=== PATIENT | male | born 1960 | race Caucasian/White ===

== ENCOUNTER 2017-03-05 05:18 | Observation (INO) | payer BC, OTHER ==
[2017-02-25 11:57] VITALS: BMI 43.0
--- NOTE | 2017-02-25 12:38 | PAT Medication Instructions ---
Service Date Feb 25, 2017. Current Home Medication List Apixaban (Eliquis), Unknown Dose PO BID Carvedilol (Carvedilol), 1 TAB PO BID Folic Acid (Folic Acid), Unknown Dose QAM Lisinopril (Prinivil), 20 MG PO QAM Magnesium Oxide (Mag-Ox), Unknown Dose PO BID Multiple Vitamin (Multi Vitamin), 1 TAB PO QAM Medication Instructions For Your Scheduled Surgery - Check with surgeon and buffet server for instructions: Apixaban (Eliquis), Unknown Dose PO BID - Hold the following medications the morning of surgery: Magnesium Oxide (Mag-Ox), Unknown Dose PO BID Multiple Vitamin (Multi Vitamin), 1 TAB PO QAM Folic Acid (Folic Acid), Unknown Dose QAM Lisinopril (Prinivil), 20 MG PO QAM - Take the following medications the morning of surgery with a sip of water: Carvedilol (Carvedilol), 1 TAB PO BID - Take the following medications as scheduled the night before surgery: Magnesium Oxide (Mag-Ox), Unknown Dose PO BID Carvedilol (Carvedilol), 1 TAB PO BID If you have any questions please call us at [phone] or [phone] or [phone]
--- NOTE | 2017-02-25 13:16 | DIAGNOSTIC IMAGING REPORT ---
CHEST PREADMISSION(PA/LAT) CLINICAL HISTORY: Preoperative chest COMPARISON STUDY: 06/24/2010 FINDINGS: The cardiac and mediastinal contours remain stable. There is no focal pulmonary consolidation. There is no failure. There is minor left basilar atelectatic change. Degenerative changes are present within the dorsal spine.[ IMPRESSION: No active disease in the chest. Electronically signed by: Saeid Santos M.D. 02/25/2017 1:14 PM Dictated Date/Time: 02/25/2017 1:14 PM
[2017-02-25 13:26] LABS: BASO % 0.5 %; BASO ABS # 0.02 K/uL (0-0.2); COMPLETE YES; EOS % 2.8 %; HEMATOCRIT 41.7 % (42-52); IG% 0.5 %; LYMPH % 18.9 %; MEAN CORPUSCULAR HEMOGLOBIN 29.3 pg (25-34); MEAN CORPUSCULAR HGB CONC 32.1 g/dl (32-36); MEAN PLATELET VOLUME 9.5 fL (7.4-10.4); MONO % 18.2 %; NEUT % 59.1 %; PLATELET COUNT 169 K/uL (130-400); RED BLOOD COUNT 4.58 M/uL (4.7-6.1); WHITE BLOOD COUNT 4.23 K/uL (4.8-10.8)
[2017-02-25 13:33] LABS: URINE APPEARANCE CLEAR (CLEAR); URINE BILIRUBIN NEG (NEG); URINE COLOR DK YELLOW; URINE NITRITE NEG (NEG); URINE PH 6.5 (4.5-7.5); UROBILINOGEN POS (NEG); ZZUR CULT IF INDIC CLEAN CATCH NO
[2017-02-25 13:34] LABS: INR 1.1 (0.9-1.1); PARTIAL THROMBOPLASTIN RATIO 1.2; PROTHROMBIN TIME (PATIENT) 11.9 SECONDS (9.0-12.0)
[2017-02-25 13:45] LABS: BUN/CREATININE RATIO 7.7 (10-20); CALCIUM 9.2 mg/dl (8.5-10.1); CREATININE 1.3 mg/dl (0.60-1.40); POTASSIUM 4.4 mmol/L (3.5-5.1)
[2017-02-25 13:48] LABS: MANUAL MICROSCOPIC REQUIRED? NO; REVIEW REQ? NO
--- NOTE | 2017-03-04 22:59 | History and Physical ---
History & Physical Date Mar 04, 2017. Chief Complaint Left foot pain History of Present Illness The patient is a 57 year old male with complaints of left foot pain and a large fluid collection that recently started on the lateral side of his foot. He has a hx of a triple arthrodesis on this side which hasn't been a problem for him since his recovery. More recently, a large area swelled and seemed to be filled with fluid. He had an MRI which confirmed a mass. He is now being set up for surgical management. Past Medical/Surgical History Past surgical hx: left triple arthrodesis PMH: Angina, HTN, Hx of back pain, hx of irregular heart beat, dilated cardiomyopathy, paroxysmal atrial fibrillation Allergies Coded Allergies: No Known Allergies (Unverified , 02/25/17) Home Medications Scheduled Amlodipine (Norvasc), 5 MG PO DAILY Apixaban (Eliquis), Unknown Dose PO BID Carvedilol (Carvedilol), 1 TAB PO BID Folic Acid (Folic Acid), Unknown Dose QAM Lisinopril (Prinivil), 20 MG PO QAM Magnesium Oxide (Mag-Ox), Unknown Dose PO BID Multiple Vitamin (Multi Vitamin), 1 TAB PO QAM Physical Examination Skin: warm/dry, no rash Eyes: normal inspection ENT: normal ENT inspection Head: normocephalic, atraumatic Neck: supple, no adenopathy, trachea midline Respiratory/Chest: lungs clear, normal breath sounds, no respiratory distress Cardiovascular: regular rate, rhythm, no murmur Abdomen / GI: normal bowel sounds, non tender Extremities: + pertinent finding (Left foot pes planus. Well healed incisions at the medial and lateral hindfoot. Large mass at the lateral foot with fluctuance. No open areas. No warmth or erythema. Tender to palpation lateral foot.) Neurologic/Psych: alert, oriented x 3 Diagnosis Left foot mass Retained hardware left hindfoot Plan of Treatment Recommend a left foot I & D and evacuation of mass lateral foot, possible hardware removal of the hindfoot, possible exostectomy 5th metatarsal base. All potential risks, benefits, complications, alternatives, and rehab have been discussed with the patient and he wishes to proceed. He will be scheduled on 03.05.17.
[2017-03-05] VITALS (7 sets, daily range): BP systolic 98–154; BP diastolic 66–95; PULSE 74–87; TEMP 36.4–37; O2SAT 91–99; Ht 185.4 cm; Wt 148.4 kg
[~2017-03-05] VITALS: Ht 185.4 cm; Wt 148.4 kg
[~2017-03-05 05:18] MED LIST: AMLO-110 PO; APIX1TAB3 PO; CRG125 PO; FLV400; LISI10TA PO; MAGN400T6 PO; MULT-1027 PO
[2017-03-05] MEDS ORDERED: MAGN400T6 PO (05:52)
[2017-03-05] MEDS ORDERED: THIA100T11 PO (05:56)
[2017-03-05] MEDS ORDERED: LACTATED RINGER'S 1000ML 1,000 ML IV SCH ×2 (06:00)
[2017-03-05] MEDS ORDERED: CEFAZOLIN 3000 MG/65 ML D5W IV SCH (06:00)
[2017-03-05] MEDS ORDERED: ROPIVACAINE 0.5% 5 MG/ML 30 ML VIAL ONE (06:29)
--- NOTE | 2017-03-05 07:43 | History & Physical Bridge Note ---
H&P Re-Evaluation Bridge Note: I have examined the patient, reviewed the History & Physical and in the interval since the performance of the History & Physical I have noted the following changes of clinical significance: No changes noted
[2017-03-05] MEDS ORDERED: FENTANYL CITRATE INJ 50 MCG/1 ML 2 ML VIAL IV PRN (08:45)
[2017-03-05] MEDS ORDERED: ATROPINE SULFATE 0.1 MG/ML 5ML SYR IV PRN (08:45)
[2017-03-05] MEDS ORDERED: EpHEDrine SULFATE INJ 50 MG/ML AMP IV PRN (08:45)
[2017-03-05] MEDS ORDERED: ONDANSETRON INJ 2 MG/ML 2 ML VIAL IV PRN ×2 (08:45→16:30)
--- NOTE | 2017-03-05 09:55 | Anesthesiology Progress Note ---
Anesthesia Post Op Note Date & Time Mar 05, 2017 at 09:54 Vital Signs Pain Intensity: 0 Vital Signs Past 12 Hours Date Time Temp Pulse Resp B/P (MAP) Pulse Ox O2 Delivery O2 Flow Rate FiO2 03/05/17 06:00 36.4 87 22 147/95 (112) 93 Room Air Notes Mental Status: alert / awake / arousable, participated in evaluation Pt Amnestic to Procedure: Yes Nausea / Vomiting: adequately controlled Pain: adequately controlled Airway Patency, RR, SpO2: stable & adequate BP & HR: stable & adequate Hydration State: stable & adequate Anesthetic Complications: no major complications apparent Patient treated again in PACU for elevated BG. Repeat improved, but still high. Floor informed to ensure that patient continues to receive insulin until BG more appropriate
[2017-03-05] MEDS ORDERED: LIDOCAINE HCL 2% 2 ML VIAL (20MG/ML) ONE (14:12)
[2017-03-05] MEDS ORDERED: ONDANSETRON INJ 2 MG/ML 2 ML VIAL ONE (14:12)
[2017-03-05] MEDS ORDERED: PROPOFOL IV EMULSION 10 MG/ML 20 ML VIAL IV ONE (14:12)
[2017-03-05] MEDS ORDERED: GLYCOPYRROLATE INJ 0.2 MG/ML VIAL ONE (14:12)
[2017-03-05] MEDS ORDERED: FENTANYL CITRATE INJ 50 MCG/1 ML 2 ML VIAL ONE (14:12)
[2017-03-05] MEDS ORDERED: MIDAZOLAM HCL 1 MG/ML 2ML VIAL ONE ×2 (14:12→15:13)
[2017-03-05] MEDS ORDERED: NEOSTIGMINE METHYLSULFATE 5 MG/5 ML SYR ONE (14:12)
[2017-03-05] MEDS ORDERED: DEXAMETHASONE SOD INJ 4 MG/ML VIAL ONE (14:12)
[2017-03-05] MEDS ORDERED: BUPIVACAINE 0.5 % 5 MG/1 ML MPF 30ML VIAL ONE (14:26)
[2017-03-05] MEDS ORDERED: BACITRACIN 50000 UNIT VIAL ONE (14:26)
[2017-03-05] MEDS ORDERED: MEPIVACAINE HCL 1.5% 30 ML VIAL ONE (14:34)
[2017-03-05] MEDS ORDERED: HydrALAZINE HCL 20 MG/ML VIAL ONE (15:29)
[2017-03-05] MEDS ORDERED: LABETALOL HCL IV 5 MG/ML 20ML IV ONE (15:29)
[2017-03-05] MEDS ORDERED: THROMBIN FOR SOLN 20000 UNIT KIT ONE (15:33)
[2017-03-05] MEDS ORDERED: GELATIN SPONGE SZ 100 ONE (15:33)
--- NOTE | 2017-03-05 16:19 | Anesthesiology Progress Note ---
Anesthesia Post Op Note Date & Time Mar 05, 2017 at 16:18 Vital Signs Pain Intensity: 0 Vital Signs Past 12 Hours Date Time Temp Pulse Resp B/P (MAP) Pulse Ox O2 Delivery O2 Flow Rate FiO2 03/05/17 16:05 78 16 118/72 97 Oxymask 10 03/05/17 15:57 36.5 78 16 138/81 98 Oxymask 10 03/05/17 06:00 36.4 87 22 147/95 (112) 93 Room Air Notes Mental Status: alert / awake / arousable, participated in evaluation Nausea / Vomiting: adequately controlled Pain: adequately controlled Airway Patency, RR, SpO2: stable & adequate BP & HR: stable & adequate Hydration State: stable & adequate Anesthetic Complications: no major complications apparent Anesthetic Complications: Case done under regional and light sedation. Amnesia not expected for this case.
--- NOTE | 2017-03-05 16:24 | [facility] Post Operative Brief Note ---
Immediate Operative Summary Operative Date Mar 05, 2017. Pre-Operative Diagnosis Left Foot Mass Post-Operative Diagnosis Left Foot Mass; Hematoma foot; Bursitis foot Procedure(s) Performed 1. Left Foot Incision and Drainage with Evacuation of Hematoma; 2. Bursectomy foot Surgeon Dr. Milligan [place] Worker Surgeon(s) Jaun Dixon PA-C Estimated Blood Loss 250ml Findings See dict Specimens For Culture: 1. Left Lateral Foot - routine - Aerobic/Anaerobic, C+S, Gram Stain Drains HV x 1 left foot Anesthesia Ankle block with sedation Complication(s) None Disposition Recovery Room / PACU
[2017-03-05] MEDS ORDERED: MAGNESIUM HYDROXIDE SUSP 30 ML UDC PO PRN (16:30)
[2017-03-05] MEDS ORDERED: BISACODYL 10 MG SUPP PR PRN (16:30)
[2017-03-05] MEDS ORDERED: ZOLPIDEM TARTRATE 5 MG TAB PO PRN (16:30)
[2017-03-05] MEDS ORDERED: ALUMINUM/MAGNESIUM/SIMETH (MAALOX MAX) 30 ML UDC PO PRN (16:30)
[2017-03-05] MEDS ORDERED: OXYCODONE HCL IR 5 MG TAB (IMMEDIATE RELEASE) PO PRN (16:30)
[2017-03-05] MEDS ORDERED: MoRPHine SULFATE 2 MG/ML CARP IV PRN (16:30)
[2017-03-05] MEDS ORDERED: SOD PHOSPHATE/SOD BIPHOSPHATE ENEMA 132 ML BTL PR PRN (16:30)
[2017-03-05] MEDS ORDERED: IV FLUIDS COMPLETED PRN (17:15)
[2017-03-05] MEDS ORDERED: LORAZEPAM INJ 1 MG in SYRINGE 0.5 ML IV PRN (18:45)
--- NOTE | 2017-03-05 18:50 | Medical Consult ---
Consultation Date of Consultation: Mar 05, 2017. Attending Physician: Jake Milligan D.O. Reason for Consultation: Medical management and EtOH use History of Present Illness 57 y/o M who was admitted earlier today s/p L foot I&D with Dr. Milligan. Pt feels he is doing well post-op. He is finishing dinner and denies issues with PO intake. No n/v. Denies SOB or chest pain. He has pain to his foot but manageable. Pt states he drinks "1 beer every couple of days". He denies hx of shaking or withdrawing on days when he does not drink. Pt denies fever, abd pain, c/d, LE swelling. Past Medical/Surgical History HTN Afib-on eliquis Dilated cardiomyopathy Angina Social History Smoking Status: Former Smoker Smokeless Tobacco Use: Yes Alcohol Use: occasionally (as above) Drug Use: none Allergies Coded Allergies: No Known Allergies (Unverified , 03/05/17) Current Inpatient Medications Current Inpatient Medications Medications (Trade) Dose Ordered Sig/Merritt Route Start Time Stop Time Status Last Admin Dose Admin Lactated Ringer's 1,000 ml @ 15 mls/hr Q24H IV 03/05/17 06:00 03/06/17 05:59 03/05/17 06:21 15 MLS/HR Potassium Chloride/Dextrose/ Sod Cl 1,000 ml @ 100 mls/hr Q10H IV 03/05/17 16:20 04/04/17 16:19 UNV Ketorolac Tromethamine (Toradol Inj) 30 mg Q6H IV. 03/05/17 16:30 03/07/17 16:29 UNV Oxycodone HCl (Roxicodone Immediate Rel Tab) 1-2 TABS FOR PAIN 1 TABLET ... Q4H PRN PO 03/05/17 16:30 03/19/17 16:29 UNV Morphine Sulfate (MoRPHine SULFATE INJ) 2 mg Q1HWA PRN IV 03/05/17 16:30 03/19/17 16:29 UNV Acetaminophen (Tylenol Tab) 1,000 mg Q8H PO 03/05/17 16:30 04/04/17 16:29 UNV Magnesium Hydroxide (Milk Of Magnesia Susp) 30 ml Q6H PRN PO 03/05/17 16:30 04/04/17 16:29 UNV Bisacodyl (Dulcolax Supp) 10 mg DAILY PRN FL 03/05/17 16:30 04/04/17 16:29 UNV Sodium Biphosphate/ Sodium Phosphate (Fleet Enema) 132 ml DAILY PRN FL 03/05/17 16:30 04/04/17 16:29 UNV Senna (Senokot Tab) 17.2 mg HS PO 03/05/17 21:00 04/04/17 20:59 UNV Docusate Sodium (coLACE CAP) 100 mg BID PO 03/05/17 21:00 04/04/17 20:59 UNV Diphenhydramine HCl (Benadryl Cap) 25 mg Q8H PRN PO 03/05/17 16:30 04/04/17 16:29 UNV Al Hydrox/Mg Hydrox/Simethicone (Maalox Max Susp) 15 ml Q4H PRN PO 03/05/17 16:30 04/04/17 16:29 UNV Zolpidem Tartrate (Ambien Tab) 5 mg HSZ PRN PO 03/05/17 16:30 04/04/17 16:29 UNV Multivitamins (Multivitamin Tab) 1 tab QAM PO 03/06/17 09:00 04/05/17 08:59 UNV Ondansetron HCl (Zofran Inj) 4 mg Q6H PRN IV 03/05/17 16:30 04/04/17 16:29 UNV Ferrous Gluconate (Ferrous Gluconate Tab) 324 mg TIDM PO 03/05/17 17:45 04/04/17 17:59 UNV Pantoprazole Sodium (Protonix Tab) 40 mg QAM PO 03/06/17 09:00 04/05/17 08:59 UNV Cefazolin Sodium 2000 mg/Dextrose 60 ml @ 100 mls/hr Q8H IV 03/05/17 16:30 03/06/17 01:05 UNV Amlodipine Besylate (Norvasc Tab) 5 mg DAILY PO 03/06/17 09:00 04/05/17 08:59 UNV Carvedilol (Coreg Tab) 12.5 mg BID PO 03/05/17 21:00 04/04/17 20:59 UNV Magnesium Oxide (Mag-Ox Tab) 400 mg BID PO 03/05/17 21:00 04/04/17 20:59 UNV Multivitamins (Multivitamin Tab) 1 tab QAM PO 03/06/17 09:00 04/05/17 08:59 UNV Thiamine HCl (Vitamin B-1 Tab) 100 mg DAILY PO 03/06/17 09:00 04/05/17 08:59 UNV Miscellaneous (Iv Fluids Completed) 1 ea PRN PRN N/A 03/05/17 17:15 03/05/18 17:14 UNV Review of Systems Pertinent positives and negatives reviewed in HPI--all others negative Physical Exam Date Time Temp Pulse Resp B/P (MAP) Pulse Ox O2 Delivery O2 Flow Rate FiO2 03/05/17 17:59 36.6 82 17 132/81 (98) 93 Nasal Cannula 3.0 03/05/17 17:29 36.7 74 18 148/93 (111) 99 Nasal Cannula 4.0 03/05/17 17:00 91 Nasal Cannula 4.0 03/05/17 17:00 91 Nasal Cannula 4.0 03/05/17 16:35 36.9 72 24 125/75 96 Nasal Cannula 4 03/05/17 16:25 75 25 125/79 96 Nasal Cannula 4 03/05/17 16:15 74 26 111/76 97 Oxymask 10 03/05/17 16:05 78 16 118/72 97 Oxymask 10 03/05/17 15:57 36.5 78 16 138/81 98 Oxymask 10 03/05/17 06:00 36.4 87 22 147/95 (112) 93 Room Air General Appearance: WD/WN, no apparent distress Head: normocephalic, atraumatic Eyes: normal inspection, EOMI ENT: hearing grossly normal Neck: supple Respiratory/Chest: normal breath sounds, no respiratory distress Cardiovascular: regular rate, rhythm, no edema Abdomen/GI: non tender, soft Extremities/Musculoskelatal: no calf tenderness, no pedal edema Neurologic/Psych: alert, oriented x 3 Skin: normal color, warm/dry Assessment & Plan 57 y/o M who was admitted on 03/05 s/p L foot I&D L foot I&D: as per ortho Concern for EtOH use: pt denies heavy or daily use Alcohol withdrawal protocol Ativan if concerns for withdrawal HTN: stable, continue home meds Afib: resume eliquis when able per ortho Smokeless tobacco use: declines nicotine patch
[2017-03-05] MEDS: D5W AND 1/2NSS + 20MEQ KCL 1,000 ML IV SCH (19:57)
[2017-03-05] MEDS: FERROUS GLUCONATE 324 MG TAB PO SCH (20:04)
[2017-03-05] MEDS: KETOROLAC TROMETHAMINE 30 MG/ML VIAL IV. SCH ×2 (20:04→23:50)
[2017-03-05] MEDS: DOCUSATE SODIUM 100 MG CAP PO SCH (20:45)
[2017-03-05] MEDS: CARVEDILOL 12.5 MG TAB PO SCH (20:46)
[2017-03-05] MEDS: SENNA 8.6 MG TAB PO SCH (20:46)
[2017-03-05] MEDS: MAGNESIUM OXIDE 400 MG TAB PO SCH (20:46)
--- NOTE | 2017-03-05 22:11 | OPERATIVE REPORT ---
DATE OF OPERATION: 03/05/2017 PREOPERATIVE DIAGNOSIS: Left foot mass. POSTOPERATIVE DIAGNOSES: 1. Left foot mass. 2. Hematoma, plantar and plantar lateral left foot. 3. Hypertrophic bursa of the left foot. PROCEDURE: 1. Left foot incision and drainage with evacuation of hematoma. 2. Bursectomy of the foot. SURGEON: Dr. Milligan. CORN PICKER: Due to the complex nature of the procedure, the entire surgery was performed with the housekeeper/laundry assistant of Jaun Dixon PA-C. The lpn or medical assistant, under direct supervision, was involved in the actual performance of all aspects of the surgical procedure including hemostasis, tissue retraction and incision, instrument management, patient positioning, and wound closure. ANESTHESIA: Ankle block with sedation. SPECIMENS: Aerobic, anaerobic, Gram stain. DRAINS: Hemovac x1. COMPLICATIONS: None. BLOOD LOSS: 250 mL. PERTINENT HISTORY: This is a 57-year-old gentleman who had a chronic progressive mass of the left foot which arose over a period of approximately 2-3 months. He had been weightbearing on it with some discomfort; however, his largest tissue was shoewear fitting. He had an attempted observation and conservative management and failed this. He had an MRI which demonstrated a large mass in the plantar and plantar lateral aspect of the left foot. The patient was scheduled for surgery as indicated. All potential risks, benefits, complications, alternatives, rehab potential for incomplete of relief of symptoms, need for further surgery, DVT, PE, , persistent pain, swelling, scarring, weakness, neurovascular injury, wound complications, need for further surgery were discussed with the patient. The patient decided to proceed with the procedure as indicated. DESCRIPTION OF PROCEDURE: The patient was taken to the operative suite, placed supine on the operating room table. I reviewed the consent and identification of proper operative site, the patient was sedated. An ankle block was then performed by the department of anesthesia. Next, the left lower extremity was then sterilely prepped and draped in usual fashion, elevated, and exsanguinated with an Esmarch bandage. An Esmarch tourniquet was applied over sterile surgical towel above the ankle. Next, a 15 blade scalpel was used to make an incision over the lateral aspect of the base of the fifth metatarsal adjacent to the mass. The incision was deepened through subcutaneous tissue. There was noted to be significant amount of dark blood and bloody fluid with features of organized clot present. This was cultured, aerobic, anaerobic, Gram stain and was passed off as specimen. Next, the large bursal sac was then entered and it was evacuated. There was combination of dark blood and new more bright red venous blood as well present. This was then irrigated with pulsatile lavage and evacuation of organized and disorganized clot was performed. No purulence was noted. Next electrocautery was used to cauterize some of the hypertrophic and tortuous vessels consistent with varicose veins and then Gelfoam and thrombin was then inserted after pulsatile lavage was used to lavage the bursal sac and after rongeur had been used to resect the bursa. Next, a 10-Mongolian single Hemovac drain was then placed extending dorsal lateral aspect of the foot and drain present in the lateral and plantar aspect of the left foot. Next, the Gelfoam and thrombin was placed in the foot followed by placement of 3-0 nylon sutures to close the incision. Next, sterile compressive dressing was applied overwrapped with an Denzel wrap. The tourniquet was released. The patient was awakened and taken to recovery in stable condition. I attest to the content of the Intraoperative Record and any orders documented therein. Any exception s are noted below.
[2017-03-05] MEDS: CEFAZOLIN IV 2,000 MG in DEXTROSE 5% 50ML 50 ML IV SCH (22:31)
[2017-03-05] MEDS: ACETAMINOPHEN 500 MG TAB PO SCH (22:33)
[2017-03-06 03:04] VITALS: BP 121/76; PULSE 68; TEMP 36.7; O2SAT 95
[2017-03-06] MEDS: CEFAZOLIN IV 2,000 MG in DEXTROSE 5% 50ML 50 ML IV SCH (05:21)
[2017-03-06] MEDS: D5W AND 1/2NSS + 20MEQ KCL 1,000 ML IV SCH ×2 (05:21→13:56)
[2017-03-06] MEDS: ACETAMINOPHEN 500 MG TAB PO SCH ×3 (05:22→22:04)
[2017-03-06] MEDS: KETOROLAC TROMETHAMINE 30 MG/ML VIAL IV. SCH ×4 (05:22→23:29)
[2017-03-06 06:23] LABS: HEMATOCRIT 36.5 % (42-52); MEAN CELL VOLUME 91.9 fL (80-100); MEAN CORPUSCULAR HEMOGLOBIN 29.5 pg (25-34); MEAN CORPUSCULAR HGB CONC 32.1 g/dl (32-36); MEAN PLATELET VOLUME 9.4 fL (7.4-10.4); PLATELET COUNT 117 K/uL (130-400); RED BLOOD COUNT 3.97 M/uL (4.7-6.1); WHITE BLOOD COUNT 4.11 K/uL (4.8-10.8)
[2017-03-06 06:52] VITALS: BP 118/77; PULSE 67; TEMP 37.2; O2SAT 91
[2017-03-06 06:54] LABS: BUN/CREATININE RATIO 9.2 (10-20); CALCIUM 8.3 mg/dl (8.5-10.1); CREATININE 1.2 mg/dl (0.60-1.40); POTASSIUM 4.1 mmol/L (3.5-5.1)
[2017-03-06] MEDS ORDERED: MULTIVITAMIN TAB PO SCH (09:00)
--- NOTE | 2017-03-06 09:02 | Orthopedic Progress Note ---
Orthopedic Progress Note Date of Service Mar 06, 2017. Subjective Post OP Day: 1 Reports: feeling well Objective Hemovac d/c'd, bloody drainage increased on dressing, dressing changed, significant bloody drainage from hemovac site, incision intact, appears to be reaccumulation of fluid, new compression dressing applied Date Time Temp Pulse Resp B/P (MAP) Pulse Ox O2 Delivery O2 Flow Rate FiO2 03/06/17 08:17 Room Air 03/06/17 06:52 37.2 67 16 118/77 (91) 91 Room Air 03/06/17 03:04 36.7 68 17 121/76 (91) 95 Nasal Cannula 2.0 03/05/17 23:46 Nasal Cannula 2.0 03/05/17 23:37 37.0 76 16 154/95 (114) 96 Nasal Cannula 2.0 03/05/17 20:44 36.6 74 18 106/73 (84) 96 Nasal Cannula 3.0 03/05/17 19:00 36.9 85 18 98/66 (77) 96 Nasal Cannula 2.0 03/05/17 17:59 36.6 82 17 132/81 (98) 93 Nasal Cannula 3.0 03/05/17 17:29 36.7 74 18 148/93 (111) 99 Nasal Cannula 4.0 03/05/17 17:00 91 Nasal Cannula 4.0 03/05/17 17:00 91 Nasal Cannula 4.0 03/05/17 16:35 36.9 72 24 125/75 96 Nasal Cannula 4 03/05/17 16:25 75 25 125/79 96 Nasal Cannula 4 03/05/17 16:15 74 26 111/76 97 Oxymask 10 03/05/17 16:05 78 16 118/72 97 Oxymask 10 03/05/17 15:57 36.5 78 16 138/81 98 Oxymask 10 Laboratory Results 24 Hours: Test 03/06/17 05:47 Hematocrit 36.5 % Hemoglobin 11.7 g/dL Assessment & Plan Assessment: 57 yo male stable POD #1 s/p evacuation hematoma left lateral midfoot Plan: 1. Likely keep pt today/overnight and re-eval wound in AM
[2017-03-06] MEDS: DOCUSATE SODIUM 100 MG CAP PO SCH ×2 (09:36→21:36)
[2017-03-06] MEDS: CARVEDILOL 12.5 MG TAB PO SCH ×2 (09:36→21:37)
[2017-03-06] MEDS: FERROUS GLUCONATE 324 MG TAB PO SCH ×3 (09:36→18:24)
[2017-03-06] MEDS: AMLODIPINE BESYLATE 5 MG TAB PO SCH (09:37)
[2017-03-06] MEDS: MAGNESIUM OXIDE 400 MG TAB PO SCH ×2 (09:37→21:39)
[2017-03-06] MEDS: MULTIVITAMIN TAB PO SCH (09:37)
[2017-03-06] MEDS: PANTOprazole SOD 40 MG TAB PO SCH (09:38)
[2017-03-06] MEDS: THIAMINE HCL 100 MG TAB PO SCH (09:38)
[2017-03-06 12:07] VITALS: BP 135/91; PULSE 72; O2SAT 93
[2017-03-06 15:24] VITALS: BP 148/90; PULSE 75; TEMP 37.2; O2SAT 94
[2017-03-06 21:35] VITALS: BP 180/102; PULSE 77
[2017-03-06] MEDS: SENNA 8.6 MG TAB PO SCH (21:37)
[2017-03-06 22:59] VITALS: BP 164/104; PULSE 77; TEMP 36.9; O2SAT 94
[2017-03-06] MEDS ORDERED: NURSING VERBAL MED ORDER ONE (23:15)
[2017-03-07 03:05] VITALS: BP 183/111; PULSE 75; TEMP 36.7; O2SAT 91
[2017-03-07 03:45] VITALS: BP 168/105
[2017-03-07] MEDS: KETOROLAC TROMETHAMINE 30 MG/ML VIAL IV. SCH ×2 (05:07→13:00)
[2017-03-07] MEDS: ACETAMINOPHEN 500 MG TAB PO SCH ×2 (05:07→14:10)
[2017-03-07 05:58] LABS: HEMATOCRIT 36.2 % (42-52); MEAN CELL VOLUME 90.5 fL (80-100); MEAN CORPUSCULAR HEMOGLOBIN 29.5 pg (25-34); MEAN CORPUSCULAR HGB CONC 32.6 g/dl (32-36); MEAN PLATELET VOLUME 9.5 fL (7.4-10.4); PLATELET COUNT 118 K/uL (130-400); WHITE BLOOD COUNT 3.72 K/uL (4.8-10.8)
[2017-03-07 06:09] LABS: BUN/CREATININE RATIO 9.9 (10-20); CALCIUM 8.2 mg/dl (8.5-10.1); CREATININE 1.1 mg/dl (0.60-1.40); POTASSIUM 3.9 mmol/L (3.5-5.1)
[2017-03-07 07:06] VITALS: BP 160/106; PULSE 68; TEMP 36.8; O2SAT 91
[2017-03-07] MEDS: CARVEDILOL 12.5 MG TAB PO SCH (07:48)
[2017-03-07] MEDS: AMLODIPINE BESYLATE 5 MG TAB PO SCH (07:48)
[2017-03-07] MEDS: PANTOprazole SOD 40 MG TAB PO SCH (07:49)
--- NOTE | 2017-03-07 08:29 | Orthopedic Progress Note ---
Orthopedic Progress Note Date of Service Mar 07, 2017. Subjective Post OP Day: 2 Reports: feeling well Objective N/V intact, incision C/D/I (Dressing changed, pt with recurrent mass/swelling lateral and plantar midfoot) Date Time Temp Pulse Resp B/P (MAP) Pulse Ox O2 Delivery O2 Flow Rate FiO2 03/07/17 07:06 36.8 68 19 160/106 (124) 91 Room Air 03/07/17 03:45 168/105 (126) 03/07/17 03:05 36.7 75 18 183/111 (135) 91 Room Air 03/06/17 23:34 Room Air 03/06/17 22:59 36.9 77 18 164/104 (124) 94 Room Air 03/06/17 21:35 77 180/102 (128) 03/06/17 15:40 Room Air 03/06/17 15:24 37.2 75 22 148/90 (109) 94 Room Air 03/06/17 12:07 72 16 135/91 (106) 93 Laboratory Results 24 Hours: Test 03/07/17 05:25 Hematocrit 36.2 % Hemoglobin 11.8 g/dL Assessment & Plan Assessment: 57 yo male stable POD #2 s/p evacuation hematoma left lateral midfoot Plan: 1. Likely d/c home today
[2017-03-07] MEDS ORDERED: HYDR-5688 PO (08:30)
--- NOTE | 2017-03-07 08:37 | Discharge Instructions ---
Discharge Instructions Date of Service Mar 07, 2017. Admission Reason for Admission: Left Foot Mass, Painful Hardware, Exostosis Discharge Discharge Diagnosis / Problem: Left foot mass Discharge Goals Goal(s): Decrease discomfort, Improve function Activity Recommendations Activity Limitations: as noted below Weightbearing Status: Left toe touch . Instructions / Follow-Up Instructions / Follow-Up Weightbearing as tolerated left lower extremity with walker/crutches. Maintain clean, dry dressing except may remove to shower daily but do not submerge foot in standing water. Frequent ice and elevation. Follow-up with Dr Milligan in 10- 14 days Current Hospital Diet Patient's current hospital diet: AHA Diet (Heart Healthy) Discharge Diet Recommended Diet: AHA Diet (Heart Healthy) Procedures Procedures Performed: 1. Left Foot Incision and Drainage with Evacuation of Hematoma; 2. Bursectomy foot Pending Studies Studies pending at discharge: no Medical Emergencies . Who to Call and When: Medical Emergencies: If at any time you feel your situation is an emergency, please call 911 immediately. . Non-Emergent Contact Non-Emergency issues call your: Surgeon Call Non-Emergent contact if: temperature is above 101.5, your pain is not controlled, wound has increased drainage, wound has increased redness . "Provider Documentation" section prepared by Shawn Ochoa PA-C. . VTE Core Measure Inpt VTE Proph given/why not?: Wesley Leyva, MIREYA's PA Drug Monitoring Program Search Results: patient reviewed within database, no issues identified
[2017-03-07] MEDS: MULTIVITAMIN TAB PO SCH (09:05)
[2017-03-07] MEDS: DOCUSATE SODIUM 100 MG CAP PO SCH (09:05)
[2017-03-07] MEDS: FERROUS GLUCONATE 324 MG TAB PO SCH ×2 (09:05→12:58)
[2017-03-07] MEDS: MAGNESIUM OXIDE 400 MG TAB PO SCH (09:06)
[2017-03-07] MEDS: THIAMINE HCL 100 MG TAB PO SCH (09:06)
[2017-03-07 09:28] VITALS: BP 155/91
[2017-03-07 11:12] VITALS: BP 167/95; PULSE 89; O2SAT 91
[2017-03-07 13:09] VITALS: BP 167/95; PULSE 89; TEMP 36.8; O2SAT 91
--- NOTE | 2017-03-15 15:33 | Discharge Summary ---
Orthopedic Discharge Summary Admission Date/Reason Mar 05, 2017 at 16:26 Left Foot Mass, Painful Hardware, Exostosis. Discharge Date/Disposition Mar 07, 2017 Home Diagnosis Principal Diagnosis: left foot mass, hematoma Procedure(s) Performed 1. Left foot incision and drainage with evacuation of hematoma. 2. Bursectomy of the foot Consultations Internal medicine Medication Reconciliation New Medications: Hydrocodone/Acetaminophen 5MG/325MG ([place] 5MG/325MG) Tab 1-2 TABLET PO q4-6 PRN for Pain, #60 TAB Continued Medications: Amlodipine (Norvasc) 5 Mg Tab 5 MG PO DAILY, TAB Apixaban (Eliquis) Unknown Strength Tab 5 MG PO BID, TAB Carvedilol (Carvedilol) 12.5 Mg Tab 1 TAB PO BID Folic Acid (Folic Acid) Unknown Strength Tab Unknown Dose QAM PT REPORTS THE LABEL READS: B1 100 Magnesium Oxide (Mag-Ox) 400 Mg Tab 400 MG PO BID, TAB Multiple Vitamin (Multi Vitamin) 1 Tab Tab 1 TAB PO QAM Thiamine Hcl (Vitamin B-1) 100 Mg Tab 100 MG PO DAILY, TAB Admission Physical Exam As per Admitting History & Physical. Hospital Course The patient was admitted on 10.6.17 and underwent the above noted procedure. The patient was kept throughout the night for management of his secondary medical diagnoses. However, on POD #1 when the hemovac drain was removed, the wound from the drain was bleeding moderate amounts of blood so the patient was kept for observation of the bleeding. On POD #2, the bleeding had stopped and the patient was d/c'd home. Discharge Instructions Please refer to the electronic Patient Visit Report (Discharge Instructions) for additional information. ACTIVITY RECOMMENDATIONS: Limitations: No weight bearing to affected limb at all times. SPECIAL CARE INSTRUCTIONS: * Some drainage onto the dressing is normal and is no cause for alarm. * Some swelling is natural especially after walking. * When resting, keep your foot elevated above the level of your heart. * Call [facility] if you notice: -Increased drainage -Fever over 101 degrees F -Severe constant pain BANDAGE: * Leave bandage/cast in place unless otherwise directed. * Keep bandage/cast dry at all times. FOLLOW UP VISIT WITH DR. MURCIA If appointment is not already scheduled: Please call [facility] after you get home today to schedule a follow-up appointment for [address] Murcia at .
== END 2017-03-07 14:24 | disposition home or self-care (01) ==
LOC: C.ACU 05:18 → C.3E 16:26 → ENRESERV 16:43
PROVIDERS: ADMIT Orthopaedic Surgery Sports Medicine; ATTEND Orthopaedic Surgery Sports Medicine
DX: R22.42 Localized swelling, mass and lump, left lower limb (principal); M79.81 Nontraumatic hematoma of soft tissue; M71.872 Other specified bursopathies, left ankle and foot; I10 Essential (primary) hypertension; I48.0 Paroxysmal atrial fibrillation; I42.0 Dilated cardiomyopathy; Z79.01 Long term (current) use of anticoagulants; Z87.442 Personal history of urinary calculi; E66.01 Morbid (severe) obesity due to excess calories; Z87.891 Personal history of nicotine dependence